=== PATIENT | female | born 1995 | race Caucasian/White ===

== ENCOUNTER 2017-01-19 17:53 | Inpatient (IN) | payer BC, MEDICAID ==
[2017-01-19] MEDS ORDERED: LIDOCAINE Viscous 2% 15 ML UDCUP ONE (19:11)
[2017-01-19] MEDS ORDERED: MINERAL OIL 25 ML BOT ONE (19:11)
[2017-01-19] MEDS ORDERED: LIDOCAINE 1% (PRES FREE) 30 ML VIAL ONE (19:11)
[2017-01-19] MEDS ORDERED: OXYTOCIN 10 UNITS/ML VIAL ONE (19:11)
[2017-01-19] MEDS ORDERED: LACTATED RINGERS 1,000 ML ONE (19:11)
[2017-01-19] MEDS ORDERED: IV START KIT ONE (19:11)
[2017-01-19] MEDS ORDERED: SODIUM CHLORIDE 0.9% FLUSH 10 ML ONE (19:12)
[2017-01-19] MEDS ORDERED: OXYTOCIN IN NS 500 ML IV ONE (19:12)
[2017-01-19] MEDS ORDERED: PUMP TUBING ONE (19:12)
[2017-01-19 20:01] LABS: HEMATOCRIT 35.2 % (37.0-47.0); HEMOGLOBIN 11.6 gm/l (12.0-16.0); MEAN CELL VOLUME 88.4 fl (81.0-99.0); MEAN CORPUSCULAR HEMOGLOBIN 29.1 pg (27.0-31.0); RED CELL DISTRIBUTION WIDTH 12.5 % (11.5-14.5)
[2017-01-19] MEDS ORDERED: MISOPROSTOL 25 MCG TABLET SL ONE (20:30)
--- NOTE | 2017-01-19 21:36 | PCMAN ---
OB Admission Note - History : 1 Term: 0 : 0 Abortions (S&E): 0 Livin Gestational Age (weeks): 41 Days (#/7): 3 Admit Cervical Dilation:: 2 Admit Cervical Effacement (%):: 70 Admit Station:: -1 Membrane Status: Intact Contractions: Yes Contraction Frequency:: Mild and irregular Heart Rate:: 135 Status:: Category I EFW:: 7lbs Summary of Course:: Scant care. TRUNG based on sure LMP and 17 wk ultrasound. Rhogam given at 24 wks. Unremarkable medical history. - Labs Blood Type: O (-) negative Rubella Status: Immune GBS Status: Negative Abnormal Labs: None - Review of Systems Normal movement. No leaking of fluid or vaginal bleeding. Irregular contractions that cause tightening and cramping - has had this for the last few days. Denies WOLFF, visual changes, RUQ pain. Denies palpitations, shortness of breath, chest pain. Denies GI distress. Denies dysuria, frequency, urgency. Denies vaginal irritation or abnormal discharge. - Physical Exam General: Afebrile Psych/Mental Status: Mood/Affect Appropriate Neurological: Grossly Intact, Alert, Oriented x 4, Normal Speech HEENT: Atraumatic Lungs: Clear to Auscultation Bilaterally Cardiovascular: Regular Rate and Rhythm Genitourinary: Normal Female Genitalia Rectal Exam: Deferred - Problems (1) Post term at 41 weeks gestation Status: Acute Code: O48.0Assessment/Plan: A: IUP @ 41w3 days, here for post term induction Not in labor Category I FHR Scant care P: Discussed induction process including both cervical ripening and pitocin. Cervical ripening with misoprostol. cEFM x 2 hrs, then can go for a walk and will be put back onto cEFM after walk. Reassess in 2-3 hours or sooner as indicated.
[2017-01-19 22:42] VITALS: BMI 24.5
--- NOTE | 2017-01-19 23:40 | PDOC36 ---
Provider Note Subject: Labor progress note Note: S: Just went walking. Contractions feel more frequent and are slightly more uncomfortable. Able to talk through contractions. O: VS: BP 135/80 HR 103 RR 16 T 98.2F FHR: baseline 135, moderate variability, accels present, decels present Ctx: Q 1-3 minutes, palpate mild during contraction, soft between SVE: deferred A: IUP @ 41w3d, IOL for post term Category 1 FHR Not in labor s/p miso x1 (administered @ 2019) P: Recommended balancing rest with activity. Cervical exam in ~1 hour to determine next step in induction.
--- NOTE | 2017-01-20 03:04 | PDOC36 ---
Provider Note Subject: CNM Progress Note Note: S: Able to sleep through contractions O: contractions mild to palpation, 2-5 min, 30 sec FHR 130 baseline, accels present, no decels cx /-1 vtx, very posterior, more firm than previous exam A: not in labor fetus category 1 P: continue with misoprostel cervical ripening reassess in 4 hours
[2017-01-20] MEDS ORDERED: MISOPROSTOL 25 MCG TABLET SL SCH ×2 (06:00→07:00)
[2017-01-20] MEDS ORDERED: OXYTOCIN IN NS 500 ML IV PRN (07:21)
[2017-01-20] MEDS ORDERED: LACTATED RINGERS 1,000 ML IV SCH ×2 (07:30→10:30)
--- NOTE | 2017-01-20 07:31 | PDOC36 ---
Provider Note Subject: hand off note & pitocin Note: S: States she feels cramping pain that is getting worse in her pelvis. Desires to move forward with IOL. O: contractions mild to palpation, 1-3 min, 30-90 sec FHR 125 baseline, accels present, no decels cx /-1 vtx, mid-position, medium A: with IUP at 41w4d membranes intact not in labor fetus category 1 P: reviewed cervical change and options for third dose of misoprostel vs oxytocin. Penelope desires oxytocin. recommended shower, breaskfast, prior to initiating oxytocin. Penelope agrees to plan. oxytocin ordered, will initiate with a slow dose to continue cervical ripening, reassess in 2-4hrs or PRN
[2017-01-20] MEDS: LACTATED RINGERS 1,000 ML IV SCH ×4 (08:53→14:24)
[2017-01-20] MEDS ORDERED: FENTANYL/ROPIVACAINE EPIDURAL 250 ML EP ONE (10:23)
[2017-01-20] MEDS ORDERED: EPIDURAL PUMP SET ONE (10:23)
[2017-01-20] MEDS ORDERED: EPHEDRINE SULFATE 50 MG/ML 1ML VIAL IV PRN (10:30)
[2017-01-20] MEDS ORDERED: METOCLOPRAMIDE HCL 5 MG/ML 2ML VIAL IV PRN (10:30)
[2017-01-20] MEDS ORDERED: DIPHENHYDRAMINE HCL 50 MG/1 ML VIAL IV PRN (10:30)
[2017-01-20] MEDS ORDERED: NALOXONE HCL 0.4 MG/ML VIAL IV PRN (10:30)
[2017-01-20] MEDS ORDERED: ONDANSETRON 4 MG/2ML 2 ML VIAL IV PRN (10:30)
[2017-01-20] MEDS ORDERED: NALBUPHINE HCL 20 MG/ML AMP IV PRN (10:30)
[2017-01-20] MEDS ORDERED: LACTATED RINGERS 500 ML IV PRN (10:30)
[2017-01-20] MEDS ORDERED: SODIUM CHLORIDE 0.9% 500 ML IV PRN (10:30)
[2017-01-20] MEDS: FENTANYL/ROPIVACAINE EPIDURAL 250 ML EP SCH (10:35)
--- NOTE | 2017-01-20 10:49 | PDOC36 ---
Provider Note Subject: labor note - epidural Note: S: Penelope is in tears and feeling lots of pressure, desires epidural. pit was never started d/t ctx frequency O: Deferred to post epidural FHT: 125/moderate/accels present/decels absent Ctx: q 1-2min, lasting 60 sec A: Presumably Active Labor FHT: Cat I Membranes Intact Postdates IOL P: Epidural ordered placed. Assess cervix after epidural. Will initiate oxytocin only if needed anticipate
[2017-01-20] MEDS ORDERED: EPIDURAL PROCEDURE TRAY ONE (10:51)
[2017-01-20] MEDS ORDERED: OXYTOCIN IN NS 334 ML IV PRN (10:51)
[2017-01-20] MEDS ORDERED: MINERAL OIL 25 ML BOT TP ONE (15:15)
[2017-01-20] MEDS ORDERED: MAGNESIUM HYDROXIDE 30 ML UDCUP PO PRN (16:56)
[2017-01-20] MEDS ORDERED: CALCIUM CARBONATE 500 MG TAB.CHEW PO PRN (16:56)
[2017-01-20] MEDS ORDERED: LANOLIN 50 APPLIC/7G TUBE TP PRN (16:56)
[2017-01-20] MEDS ORDERED: HYDROCODONE/ACETAMINOPHEN 5/325MG TABLET PO PRN (16:56)
[2017-01-20] MEDS ORDERED: OXYTOCIN IN NS 167 ML IV PRN (16:56)
[2017-01-20] MEDS ORDERED: DOCUSATE SODIUM 100 MG CAPSULE PO PRN (16:56)
[2017-01-20] MEDS ORDERED: ACETAMINOPHEN 325 MG TABLET PO PRN (16:56)
[2017-01-20] MEDS ORDERED: LACTATED RINGERS 1,000 ML IV PRN (16:56)
[2017-01-20] MEDS ORDERED: BENZOCAINE/MENTHOL 60 APPLIC/BOT TP PRN (16:56)
[2017-01-20] MEDS: IBUPROFEN 800 MG TABLET PO SCH (17:24)
--- NOTE | 2017-01-20 17:58 | PCMDEL ---
Delivery Note - Labor 1st stage (hr/min):: 5h27m 2nd stage (hr/min):: 0h39m 3rd stage (hr/min):: 0h14m Total (hr/min):: 6h20m Pushed (hr/min):: 0h40m - Delivery Delivery (Date): 01/20/17 Delivery (Time): 15:36 Infant Gender: Female Weight: 7 lb 4 oz Presentation: Cephalic Position: OA (to EMERSON) Umbilical Cord: 3 Vessel Delayed Cord Clamping:: > 3 min 1 Minute Total: 9 5 Minute Total: 9 Placenta:: AMTSL, Spontaneous, zoya, intact EBL:: 200ml Perineum:: 1st deg vaginal, 1st deg right labial Suture:: 4-0 vicryl on SH Anesthesia/Meds:: epidural Length ROM:: 3h8m Comments:: Following postdates cervical ripening for IOL with miso x 2 through the night, Penelope continued with spontaneous labor contractions. She made steady progress to complete, requesting an epidural at 5cm and AROM augmentation at 8cm (clear fluid, gbs neg). FHT was primarily cat. I throughout labor. She pushed effectively in semi-fowlers with sheet pull and support of FOB and mother to achieve of vigorous baby girl placed immediately on maternal abdomen with vigorous cry for drying and bonding. OA to EMERSON, easy delivery of shoulders, apgars 9/9. AMTSL with IV pit given. Delayed cord clamping until cessation of cord pulse, >6min, cut by FOB. Cord blood collected. Spontaneous delivery of intact placenta, zoya, trailing membranes teased out with ring forceps. Fundus firm midline at U. Perineum inspected and found to be intact externally, one stitch applied to small first degree vaginal lac with active bleeding to achieve hemostasis and one stitch done in first degree right labial lac for approximation. Hemostasis achieved with QBL 200ml. Mom and baby stable.
[2017-01-20] MEDS ORDERED: RHOGAM 300 MCG SYRINGE IV ONE (22:00)
[2017-01-21] MEDS: IBUPROFEN 800 MG TABLET PO SCH ×4 (00:08→19:52)
--- NOTE | 2017-01-21 09:37 | PDOC44 ---
- Subjective Day: 1 Penelope feels well. She reports that the was awake and feeding through much of the night. She reports every 60-90 minutes and that it is somewhat painful with the initial latch, but that the pain subsides as the feed continues. She denies redness, cracks, and blisters of her nipples. She feels good about her experience even though it was painful. She is taking ibuprofen, and reports that her pain is tolerable. Reports Flatus, Reports Pain Tolerable, Reports , Reports Lochia Light, Reports Tolerating Regular Diet - Objective Temp Pulse Resp BP Pulse Ox 97.8 F 80 16 118/75 01/21/17 07:56 01/21/17 07:56 01/21/17 07:56 01/21/17 07:56 Current Medications Generic Name Dose Route Start Last Admin Trade Name Freq PRN Reason Stop Dose Admin Acetaminophen 325 - 650 mg 01/20/17 16:56 Tylenol PO Q4H PRN Pain (Mild) Acetaminophen/Hydrocodone Bitart 1 - 2 tab 01/20/17 16:56 Vantage 5/325 PO Q4H PRN Pain (Moderate) Benzocaine/Menthol 1 applic 01/20/17 16:56 01/20/17 17:24 Dermoplast TP 1 bot PRN PRN Administration Patient Comfort Calcium Carbonate/Glycine 500 - 1,000 mg 01/20/17 16:56 Tums PO BID PRN Indigestion Docusate Sodium 100 mg 01/20/17 16:56 01/21/17 07:42 Colace PO 100 mg DAILY PRN Administration Comfort Emollient Ointment 1 applic 01/20/17 16:56 Onk-O-Gpdveo TP PRN PRN sore nipples Ropivacaine/Fentanyl/NS 250 mls @ 0 mls/hr 01/20/17 10:30 01/20/17 10:35 Fentanyl 2 Mcg/Ml + Ropivacaine 0.125% Ep Bag EP 15 mls/hr EPI MARIA ELENA Administration Protocol Per Protocol Lactated Ringer's 1,000 mls @ 100 mls/hr 01/20/17 16:56 Lactated Ringers IV .Q10H PRN Titrate per clinical situation OXYTOCIN IN NS 167 mls @ 167 mls/hr 01/20/17 16:56 Oxytocin-Ns 30 Unit/500 Ml IV X1 PRN Bleeding/3rd stage labor Ibuprofen 800 mg 01/20/17 16:56 01/21/17 07:42 Motrin PO 800 mg Q6H MARIA ELENA Administration Magnesium Hydroxide 30 ml 01/20/17 16:56 Milk Of Magnesia PO BEDTIME PRN Constipation Sodium Chloride 10 ml 01/20/17 01:00 01/21/17 07:42 Normal Saline 10ml Flush IV 10 ml Q8HR MARIA ELENA Administration Sodium Chloride 10 ml 01/20/17 16:56 Normal Saline 10ml Flush IV PRN PRN IV Flush - Physical Exam General: Afebrile Psych/Mental Status: Mood/Affect Appropriate, Judgment/Insight Intact, Bonding Well Neurological: Grossly Intact, Alert, Oriented x 4 HEENT: Atraumatic Lungs: Clear to Auscultation Bilaterally, Normal Air Movement Cardiovascular: Regular Rate and Rhythm, Normal S1, Normal S2 Breast: Soft, Skin intact, Nipples Intact Fundus: Firm, Midline, Below Umbilicus Genitourinary: Normal Female Genitalia Rectal Exam: Deferred Extremities: Full ROM - Problems:Assessment/Plan (1) care following vaginal delivery Status: AcuteAssessment/Plan: A: day 1 Lochia appropriate Pain well-controlled P: Anticipate DC to home tomorrow support with Disposition: Stable, Anticipate DC Home Tomorrow
[2017-01-21] MEDS: FENTANYL/ROPIVACAINE EPIDURAL 250 ML EP SCH (10:13)
[2017-01-22 08:03] VITALS: BP 125/79
--- NOTE | 2017-01-22 09:16 | PDOC39B ---
Hospital Course: ADMIT DATE: 01/19/17 DISCHARGE DATE 01/22/17 ADMISSION DIAGNOSES: Active Labor PROCEDURES: HISTORY OF PRESENT ILLNESS: 22 year old G1 T0 L0 at 41 weeks 4 days presenting with active labor. HOSPITAL COURSE: The patient was admitted for elective induction on 01/19/17 and progressed rapidly after 2 doses of misoprostel. She had an uncomplicated vaginal . By day of discharge the patient is stable, well and ready to go home. - Physical Exam Vital Signs: Temp Pulse Resp BP Pulse Ox 97.8 F 83 18 125/79 01/22/17 08:00 01/22/17 08:00 01/22/17 08:00 01/22/17 08:00 General: Afebrile Psych/Mental Status: Mood/Affect Appropriate, Bonding Well Breast: Soft, Nipples Intact Fundus: Firm, Midline, Below Umbilicus Genitourinary: Normal Female Genitalia Lochia: Moderate Rectal Exam: Deferred Skin: Normal Color, Warm, Dry - Discharge Plan Condition: Stable Disposition: Home Additional Instructions: Midwifery 'After the ' handout given to patient. Discharge Medications: Will use OTC Ibuprophen.
== END 2017-01-22 10:57 | disposition home or self-care (01) | DRG 775 ==
LOC: FBC 17:53 → UNDOADMIN 17:53 → FBC 18:53
PROVIDERS: ADMIT Advanced Practice Midwife; ATTEND Advanced Practice Midwife
PROC: 3E0P7GC Introduction of Other Therapeutic Substance into Female Reproductive, Via Natural or Artificial Opening (ICD-10-PCS; 2017-01-19)
PROC: 10E0XZZ Delivery of Products of Conception, External Approach (ICD-10-PCS; principal; 2017-01-20)
PROC: 0HQ9XZZ Repair Perineum Skin, External Approach (ICD-10-PCS; 2017-01-20)
DX: O48.0 Post-term pregnancy (principal); O70.0 First degree perineal laceration during delivery; Z3A.41 41 weeks gestation of pregnancy; Z37.0 Single live birth